=== PATIENT | male | born 1965 | race Caucasian/White ===

== ENCOUNTER 2016-08-24 15:43 | Inpatient (IN) | payer OTHER ==
[~2016-08-24] VITALS: Ht 172.7 cm; Wt 115.3 kg
[~2016-08-24 15:43] MED LIST: Bactrim,Septra DS 80 PO; Cleocin PO; DILANTIN100 MG PO; JANUMET 50/51 TABLET PO; Lopressor PO; PLAVIX75 MG PO; Percocet 10/325,Endo PO; Valium PO
[2016-08-24 16:52] LABS: HEMATOCRIT 38.1 % (38.0-50.0); MCH 32.7 PG (29.0-34.0); MCHC 33.9 G/DL (30.0-36.0); MCV 96.5 FL (86-99); MEAN PLAT.VOLUME 9.7 uM^3 (9.0-12.4); PLATELET COUNT 188 K/uL (156-360); RBC DIS.WIDTH-CV 13.4 % (11.8-14.6); RBC DIS.WIDTH-SD 48.2 % (39-53); RED BLOOD COUNT 3.95 M/uL (4.00-5.50); WHITE BLOOD COUNT 7.3 K/uL (4.1-10.2)
[2016-08-24 17:00] LABS: CHLORIDE 111 mEq/L (99-109); POTASSIUM 5.1 mEq/L (3.7-5.4); SODIUM 140 mEq/L (136-147)
[2016-08-24 17:02] LABS: GLUCOSE 123 mg/dL (70-99)
[2016-08-24 17:03] LABS: ANION GAP 10 MEQ/L (2-14)
[2016-08-24 17:04] LABS: TOTAL BILIRUBIN 0.5 mg/dL (0.0-1.0)
[2016-08-24 17:05] LABS: ALKALINE PHOSPHATASE 191 IU/L (3-129)
[2016-08-24 17:06] LABS: GFR ESTIMATE (CALCULATED) 32 mL/min/
[2016-08-24 17:07] LABS: DIRECT BILIRUBIN 0.3 mg/dL (0.0-0.3); UREA NITROGEN (BUN) 26 mg/dL (9-23)
[2016-08-24] MEDS ORDERED: LOPRESSOR25 MG PO (20:58)
[2016-08-24] MEDS ORDERED: VALIUM10 MG PO (20:59)
[2016-08-24] MEDS ORDERED: CILOSTAZOL50 MG PO (20:59)
[2016-08-24] MEDS ORDERED: OXYCODONE HCL15 MG PO (20:59)
[2016-08-24] MEDS ORDERED: NOVOLOG MI100 UNIT/M SC ×2 (21:00)
[2016-08-24] MEDS ORDERED: K-DUR10 MEQ PO (21:01)
[2016-08-24] MEDS ORDERED: FUROSEMIDE40 MG PO (21:01)
[2016-08-24] MEDS ORDERED: NEURONTIN300 MG PO (21:01)
[2016-08-24] MEDS ORDERED: TRENTAL400 MG PO (21:01)
[2016-08-24 22:43] VITALS: BP 141/80
[2016-08-24 23:07] LABS: POINT-OF-CARE METER ID UU13113725
[2016-08-25 06:16] LABS: HEMATOCRIT 38.4 % (38.0-50.0); MCH 32.1 PG (29.0-34.0); MCHC 32.6 G/DL (30.0-36.0); MCV 98.7 FL (86-99); MEAN PLAT.VOLUME 9.3 uM^3 (9.0-12.4); PLATELET COUNT 175 K/uL (156-360); RBC DIS.WIDTH-CV 13.9 % (11.8-14.6); RBC DIS.WIDTH-SD 50.7 % (39-53); RED BLOOD COUNT 3.89 M/uL (4.00-5.50); WHITE BLOOD COUNT 7.1 K/uL (4.1-10.2)
[2016-08-25 06:41] LABS: ALKALINE PHOSPHATASE 168 IU/L (3-129); ANION GAP 6 MEQ/L (2-14); CHLORIDE 110 MEQ/L (99-109); GFR ESTIMATE (CALCULATED) 34 mL/min/; GLUCOSE 113 mg/dL (70-99); POTASSIUM 5.1 MEQ/L (3.7-5.4); SAMPLE HEMOLYSIS CHECK 0; SAMPLE ICTERIC CHECK 0; SAMPLE LIPEMIA CHECK 0; SODIUM 137 MEQ/L (136-147); TOTAL BILIRUBIN 0.4 MG/DL (0.0-1.0); UREA NITROGEN (BUN) 24 mg/dL (9-23)
[2016-08-25 08:57] VITALS: BP 146/69
[2016-08-25 09:28] LABS: ADD MIUA? YES; BILIRUBIN NEGATIVE; BLOOD SMALL; COLOR YELLOW ((YELLOW)); GLUCOSE (STRIP) 50; KETONES NEGATIVE; LEUKOCYTES NEGATIVE; NITRITE NEGATIVE; PROTEIN (STRIP) >=500; SPECIFIC GRAVITY 1.016 (1.000-1.030); UROBILINOGEN 0.2 MG/DL (0.2-1.0)
[2016-08-25 09:42] LABS: BACTERIA RARE /HPF; EPITHELIAL CELLS RARE /HPF; GRANULAR CASTS 0-5 /LPF; MUCUS TRACE /LPF; UCUL ADDED? NO; WHITE BLOOD CELLS 0-5 /HPF (0-5)
[2016-08-25 11:07] VITALS: BP 133/80
[2016-08-25 16:09] VITALS: BP 137/70
[2016-08-25 19:48] VITALS: BP 135/71
[2016-08-25 23:39] VITALS: BP 119/61
[2016-08-26 03:29] VITALS: BP 134/71
[2016-08-26 07:11] LABS: HEMATOCRIT 37.9 % (38.0-50.0); MCH 32.3 PG (29.0-34.0); MCHC 32.5 G/DL (30.0-36.0); MCV 99.5 FL (86-99); MEAN PLAT.VOLUME 9.6 uM^3 (9.0-12.4); PLATELET COUNT 161 K/uL (156-360); RBC DIS.WIDTH-CV 13.9 % (11.8-14.6); RBC DIS.WIDTH-SD 50.9 % (39-53); RED BLOOD COUNT 3.81 M/uL (4.00-5.50); WHITE BLOOD COUNT 6.7 K/uL (4.1-10.2)
[2016-08-26 07:38] LABS: ALKALINE PHOSPHATASE 165 IU/L (3-129); ANION GAP 7 MEQ/L (2-14); CHLORIDE 111 MEQ/L (99-109); GFR ESTIMATE (CALCULATED) 35 mL/min/; GLUCOSE 103 mg/dL (70-99); POTASSIUM 5.1 MEQ/L (3.7-5.4); SAMPLE HEMOLYSIS CHECK 0; SAMPLE ICTERIC CHECK 0; SAMPLE LIPEMIA CHECK 0; SODIUM 137 MEQ/L (136-147); TOTAL BILIRUBIN 0.3 MG/DL (0.0-1.0); UREA NITROGEN (BUN) 27 mg/dL (9-23)
[2016-08-26 08:25] VITALS: BP 136/71
[2016-08-26 11:33] LABS: POINT-OF-CARE METER ID UU13113725
[2016-08-26 11:56] VITALS: BP 137/73
[2016-08-26 16:05] VITALS: BP 129/72
[2016-08-26 19:20] VITALS: BP 166/78
[2016-08-26 21:06] LABS: POINT-OF-CARE METER ID UU13113725
[2016-08-26 23:41] VITALS: BP 148/73
[2016-08-27 03:15] VITALS: BP 145/65
[2016-08-27 06:21] LABS: POINT-OF-CARE METER ID UU13113725
[2016-08-27 06:59] LABS: HEMATOCRIT 37.6 % (38.0-50.0); MCH 32.6 PG (29.0-34.0); MCHC 33.2 G/DL (30.0-36.0); MCV 97.9 FL (86-99); MEAN PLAT.VOLUME 9.5 uM^3 (9.0-12.4); PLATELET COUNT 166 K/uL (156-360); RBC DIS.WIDTH-CV 13.8 % (11.8-14.6); RBC DIS.WIDTH-SD 49.4 % (39-53); RED BLOOD COUNT 3.84 M/uL (4.00-5.50); WHITE BLOOD COUNT 6.7 K/uL (4.1-10.2)
[2016-08-27 07:05] VITALS: BP 159/87
[2016-08-27 07:21] LABS: ALKALINE PHOSPHATASE 169 IU/L (3-129); ANION GAP 9 MEQ/L (2-14); CHLORIDE 111 MEQ/L (99-109); GFR ESTIMATE (CALCULATED) 40 mL/min/; GLUCOSE 112 mg/dL (70-99); POTASSIUM 4.9 MEQ/L (3.7-5.4); SAMPLE HEMOLYSIS CHECK 0; SAMPLE ICTERIC CHECK 0; SAMPLE LIPEMIA CHECK 0; SODIUM 138 MEQ/L (136-147); TOTAL BILIRUBIN 0.3 MG/DL (0.0-1.0); UREA NITROGEN (BUN) 29 mg/dL (9-23)
[2016-08-27 11:28] LABS: POINT-OF-CARE METER ID UU13113725
== END 2016-08-27 15:24 | disposition home or self-care (01) | DRG 683 ==
LOC: EME 15:43 → EDOF 21:38 → 5EAST 22:37
PROVIDERS: Internal Medicine
DX: N17.9 Acute kidney failure, unspecified (principal); I67.1 Cerebral aneurysm, nonruptured; R41.82 Altered mental status, unspecified; E86.0 Dehydration; M79.605 Pain in left leg; M79.604 Pain in right leg; I10 Essential (primary) hypertension; J44.9 Chronic obstructive pulmonary disease, unspecified; I25.10 Atherosclerotic heart disease of native coronary artery without angina pectoris; F17.210 Nicotine dependence, cigarettes, uncomplicated; F41.9 Anxiety disorder, unspecified; R01.1 Cardiac murmur, unspecified; I73.9 Peripheral vascular disease, unspecified; G40.89 Other seizures; E11.9 Type 2 diabetes mellitus without complications; G89.29 Other chronic pain; I25.2 Old myocardial infarction
CPT/HCPCS: 70450; 71020; 80053; 80185; 81003; 82248; 82948; 85027; 94799; 99281; 99283; J1644; J1815; J7030; J7050

== ENCOUNTER → 2016-10-30 | Outpatient (CLI) | payer MEDICARE, OTHER ==
[~2016-10-30] MED LIST changes: +CILOSTAZOL100 MG PO; +CILOSTAZOL50 MG PO; +FUROSEMIDE40 MG PO; +K-DUR10 MEQ PO; +LOPRESSOR25 MG PO; +NEURONTIN300 MG PO; +NOVOLOG MI100 UNIT/M SC; +OXYCODONE HCL15 MG PO; +TRENTAL400 MG PO; +VALIUM10 MG PO
== END | disposition home or self-care (01) ==
LOC: CDC 11:41
DX: R94.31 Abnormal electrocardiogram [ECG] [EKG] (principal)
CPT/HCPCS: 93000

== ENCOUNTER 2016-11-01 14:49 | Inpatient (IN) | payer OTHER ==
[~2016-11-01] VITALS: Ht 172.7 cm; Wt 80.5 kg
[~2016-11-01 14:49] MED LIST changes: -CILOSTAZOL100 MG PO
[2016-11-01 15:36] LABS: EOSINOPHIL (%) 0.3 % (0-5); HEMATOCRIT 41.2 % (38.0-50.0); IMMATURE GRANULOCYTE (%) 0.7 % (0.0-0.7); IMMATURE GRANULOCYTE COUNT 0.1 K/uL; INSTRUMENT ABS NEUTROPHIL CT 7.3 K/uL; LYMPHOCYTE COUNT 0.7 K/uL (1.0-2.8); MCH 32.3 PG (29.0-34.0); MCV 95.2 FL (86-99); MEAN PLAT.VOLUME 8.7 uM^3 (9.0-12.4); MONOCYTE (%) 4.9 % (3-12); MONOCYTE COUNT 0.4 K/uL (0-0.8); NEUTROPHIL (%) 85.4 % (45-76); NEUTROPHIL COUNT 7.3 K/uL (1.8-6.4); PLATELET COUNT 134 K/uL (156-360); RBC DIS.WIDTH-CV 14.2 % (11.8-14.6); RBC DIS.WIDTH-SD 48.8 % (39-53); RED BLOOD COUNT 4.33 M/uL (4.00-5.50); WHITE BLOOD COUNT 8.6 K/uL (4.1-10.2)
[2016-11-01 15:48] LABS: INTER. NORMALIZED RATIO 1.1
[2016-11-01 15:56] LABS: CHLORIDE 114 mEq/L (99-109); SODIUM 140 mEq/L (136-147)
[2016-11-01 15:57] LABS: POTASSIUM 4.3 mEq/L (3.7-5.4)
[2016-11-01 15:59] LABS: ANION GAP 7 MEQ/L (2-14); GLUCOSE 191 mg/dL (70-99)
[2016-11-01 16:00] LABS: TOTAL BILIRUBIN 0.6 mg/dL (0.0-1.0)
[2016-11-01 16:01] LABS: ALKALINE PHOSPHATASE 191 IU/L (3-129)
[2016-11-01 16:02] LABS: GFR ESTIMATE (CALCULATED) 37 mL/min/
[2016-11-01 16:03] LABS: UREA NITROGEN (BUN) 32 mg/dL (9-23)
[2016-11-01 16:47] LABS: PTT 27.1 (25-32)
[2016-11-01] MEDS ORDERED: CILOSTAZOL100 MG PO (17:54)
[2016-11-02 00:38] VITALS: BP 170/82
[2016-11-02 00:40] VITALS: BP 111/68
[2016-11-02 06:55] LABS: ANION GAP 6 MEQ/L (2-14); CHLORIDE 113 MEQ/L (99-109); GFR ESTIMATE (CALCULATED) 45 mL/min/; POTASSIUM 4.7 MEQ/L (3.7-5.4); SAMPLE HEMOLYSIS CHECK 0; SAMPLE ICTERIC CHECK 0; SAMPLE LIPEMIA CHECK 0; SODIUM 140 MEQ/L (136-147); UREA NITROGEN (BUN) 27 mg/dL (9-23)
[2016-11-02 06:57] LABS: GLUCOSE 102 mg/dL (70-99)
[2016-11-02 07:13] VITALS: BP 133/73
[2016-11-02 11:26] LABS: POINT-OF-CARE METER ID UU13113725
[2016-11-02 16:35] VITALS: BP 136/77
[2016-11-02 19:45] VITALS: BP 138/65
[2016-11-02 23:48] VITALS: BP 165/79
[2016-11-03 02:18] VITALS: BP 134/64
[2016-11-03 08:15] VITALS: BP 159/74
[2016-11-03 10:57] LABS: HEMATOCRIT 39.2 % (38.0-50.0); MCHC 33.9 G/DL (30.0-36.0); MCV 97.3 FL (86-99); MEAN PLAT.VOLUME 9.2 uM^3 (9.0-12.4); PLATELET COUNT 126 K/uL (156-360); RBC DIS.WIDTH-CV 14.4 % (11.8-14.6); RBC DIS.WIDTH-SD 50.4 % (39-53); RED BLOOD COUNT 4.03 M/uL (4.00-5.50); WHITE BLOOD COUNT 7.3 K/uL (4.1-10.2)
[2016-11-03 16:04] VITALS: BP 145/70
[2016-11-03 19:42] VITALS: BP 173/74
[2016-11-03 23:27] VITALS: BP 159/77
[2016-11-04 08:02] VITALS: BP 108/54
[2016-11-04 12:55] LABS: INTER. NORMALIZED RATIO 1.1; PROTHROMBIN TIME 11.4 (9.2-11.2)
[2016-11-04 15:49] VITALS: BP 157/86
[2016-11-04 19:19] VITALS: BP 170/81
[2016-11-05 00:02] VITALS: BP 145/71
[2016-11-05 06:43] LABS: INTER. NORMALIZED RATIO 1.1; PROTHROMBIN TIME 10.8 (9.2-11.2)
[2016-11-05 08:36] VITALS: BP 152/76
[2016-11-05 15:00] VITALS: BP 157/72
[2016-11-05 23:16] VITALS: BP 157/76
[2016-11-06 07:12] LABS: INTER. NORMALIZED RATIO 1.1; PROTHROMBIN TIME 11.4 (9.2-11.2)
[2016-11-06] MEDS ORDERED: OXYCODONE HCL5 MG PO (07:36)
[2016-11-06 08:00] VITALS: BP 149/74
== END 2016-11-06 13:07 | disposition home or self-care (01) | DRG 301 ==
LOC: EME 14:49 → EDOF 15:52 → 5EAST 15:52 → EDOF 19:50 → 5EAST 19:50
PROVIDERS: Emergency Medicine; Physician Assistant Surgical; Surgery
DX: E11.51 Type 2 diabetes mellitus with diabetic peripheral angiopathy without gangrene (principal); I70.213 Atherosclerosis of native arteries of extremities with intermittent claudication, bilateral legs; I75.021 Atheroembolism of right lower extremity; I12.9 Hypertensive chronic kidney disease with stage 1 through stage 4 chronic kidney disease, or unspecified chronic kidney disease; E11.22 Type 2 diabetes mellitus with diabetic chronic kidney disease; N18.9 Chronic kidney disease, unspecified; I67.1 Cerebral aneurysm, nonruptured; G89.29 Other chronic pain; I25.10 Atherosclerotic heart disease of native coronary artery without angina pectoris; I25.2 Old myocardial infarction; G43.909 Migraine, unspecified, not intractable, without status migrainosus; J44.9 Chronic obstructive pulmonary disease, unspecified; M06.9 Rheumatoid arthritis, unspecified; R56.9 Unspecified convulsions; F17.210 Nicotine dependence, cigarettes, uncomplicated; F41.9 Anxiety disorder, unspecified; Z82.3 Family history of stroke; Z95.5 Presence of coronary angioplasty implant and graft
CPT/HCPCS: 36415; 80048; 80053; 80185; 82948; 85025; 85027; 85610; 85730; 93000; 94799; 99281; 99285; J1170; J1650; J3010; J7030; J7040; J7050

== ENCOUNTER 2017-04-19 13:10 | Inpatient (IN) | payer OTHER ==
[~2017-04-19] VITALS: Ht 170.2 cm; Wt 81.2 kg
[2017-04-19] VITALS (7 sets, daily range): BP systolic 99–137; BP diastolic 58–73
[~2017-04-19 13:10] MED LIST changes: +CILOSTAZOL100 MG PO; +OXYCODONE HCL10 MG PO; -OXYCODONE HCL15 MG PO; +OXYCODONE HCL5 MG PO
[2017-04-19 13:50] LABS: BASOPHIL (%) 0.3 % (0-1); EOSINOPHIL (%) 0 % (0-5); HEMATOCRIT 46.5 % (38.0-50.0); HEMOGLOBIN 15.3 G/DL (12.5-16.6); IMMATURE GRANULOCYTE (%) 1.9 % (0.0-0.7); LYMPHOCYTE (%) 16.2 % (15-42); LYMPHOCYTE COUNT 1.9 K/uL (1.0-2.8); MCH 33.6 PG (29.0-34.0); MCHC 32.9 G/DL (30.0-36.0); MONOCYTE (%) 8.5 % (3-12); NEUTROPHIL (%) 73.1 % (45-76); NEUTROPHIL COUNT 8.6 K/uL (1.8-6.4); PLATELET COUNT 140 K/uL (156-360); RBC DIS.WIDTH-CV 16.7 % (11.8-14.6); RBC DIS.WIDTH-SD 62.8 % (39-53); RED BLOOD COUNT 4.56 M/uL (4.00-5.50); WHITE BLOOD COUNT 11.7 K/uL (4.1-10.2)
[2017-04-19 13:59] LABS: BASE EXCESS -12.2 mEq/L (-3 to +3); BICARBONATE 17.8 mEq/L (22-26); CARBOXY HGB 6.2 % (0-5); METHEMOGLOBIN 0.8 % (0-1.5); PCO2 56 mm Hg (35-45); PO2 53 mm Hg (80-100)
[2017-04-19 14:00] LABS: COMMENTS - BLOOD GASES A+C+; DEVICE NC; O2 FLOW 6 L/MIN; SITE LR; pH 7.11 (7.35-7.45)
[2017-04-19 14:37] LABS: ALBUMIN 3.1 G/DL (3.2-4.8); CHLORIDE 113 MEQ/L (99-109); SODIUM 138 MEQ/L (136-147); TOTAL BILIRUBIN 0.5 MG/DL (0.0-1.0)
[2017-04-19 14:45] LABS: AMPHETAMINE NEGATIVE (500 ng/mL); BARBITURATES PRESUMPTIVE POSITIVE (200 ng/mL); BENZODIAZEPINES PRESUMPTIVE POSITIVE (150 ng/mL); BUPRENORPHINE NEGATIVE (10 ng/mL); COCAINE NEGATIVE (150 ng/mL); METHADONE NEGATIVE (200 ng/mL); METHAMPHETAMINE NEGATIVE (500 ng/mL); OPIATES (MORPHINE) NEGATIVE (100 ng/mL); OXYCODONE PRESUMPTIVE POSITIVE (100 ng/mL); PHENCYCLIDINE NEGATIVE (25 ng/mL); PROPOXYPHENE NEGATIVE (300 ng/mL); THC CANNABINOIDS NEGATIVE (50 ng/mL); TRICYCLIC ANTIDEPRESSANTS NEGATIVE (300 ng/mL)
[2017-04-19 14:56] LABS: ALKALINE PHOSPHATASE 199 IU/L (3-129); ALT (GPT) 12 IU/L (3-49); AST (GOT) 21 IU/L (2-34); CREATININE 3.6 MG/DL (0.6-1.3); GFR ESTIMATE (CALCULATED) 19 mL/min/ (58.99-99999); GLUCOSE 95 mg/dL (70-99); SERUM ETHYL ALCOHOL < 10 mg/dL; TOTAL PROTEIN 6.4 G/DL (6.4-8.3); UREA NITROGEN (BUN) 44 mg/dL (9-23)
[2017-04-19 15:00] LABS: POTASSIUM ND MEQ/L (3.7-5.4)
[2017-04-19 15:21] LABS: BENZODIAZEPINES, URINE SCREEN POSITIVE (200 ng/mL)
[2017-04-19 15:39] LABS: POTASSIUM 6.9 MEQ/L (3.7-5.4)
[2017-04-19 16:10] LABS: BASE EXCESS -12.2 mEq/L (-3 to +3); BICARBONATE 18.2 mEq/L (22-26); CARBOXY HGB 4.9 % (0-5); METHEMOGLOBIN 0.9 % (0-1.5); PCO2 60 mm Hg (35-45)
[2017-04-19 16:12] LABS: COMMENTS - BLOOD GASES A+C+; DEVICE 840 PB MASK; FI02 60 %; MODE SPONT NIV; PEEP 5 CM/H20; PO2 98 mm Hg (80-100); PRES. SUPPORT 10 CM/H2O; SITE RR; TOTAL RESP RATE 20 resp/min; pH 7.09 (7.35-7.45)
[2017-04-19] MEDS ORDERED: LYRICA50 MG PO (17:34)
[2017-04-19 18:31] LABS: BASE EXCESS -12.7 mEq/L (-3 to +3); COMMENTS - BLOOD GASES A+C+; DEVICE 840 PB; FI02 100 %; MECHANICAL RATE 20 resp/min; METHEMOGLOBIN 1.2 % (0-1.5); MODE AC; PCO2 47 mm Hg (35-45); PEEP 10 CM/H20; PO2 78 mm Hg (80-100); SITE RR; TIDAL VOLUME 550 ML; TOTAL RESP RATE 20 resp/min; pH 7.14 (7.35-7.45)
[2017-04-19 20:43] LABS: CHLORIDE 115 MEQ/L (99-109); SODIUM 140 MEQ/L (136-147)
[2017-04-19 20:48] LABS: CREATININE 3.5 MG/DL (0.6-1.3); GFR ESTIMATE (CALCULATED) 20 mL/min/ (58.99-99999); GLUCOSE 102 mg/dL (70-99); UREA NITROGEN (BUN) 45 mg/dL (9-23)
[2017-04-20] VITALS (21 sets, daily range): BP systolic 112–160; BP diastolic 58–82
[2017-04-20 06:30] LABS: BASOPHIL (%) 0.3 % (0-1); EOSINOPHIL (%) 0.4 % (0-5); HEMATOCRIT 38.6 % (38.0-50.0); IMMATURE GRANULOCYTE (%) 0.5 % (0.0-0.7); LYMPHOCYTE (%) 15.2 % (15-42); LYMPHOCYTE COUNT 1.5 K/uL (1.0-2.8); MCH 32.6 PG (29.0-34.0); MCHC 32.4 G/DL (30.0-36.0); MCV 100.8 FL (86-99); MONOCYTE (%) 7.7 % (3-12); MONOCYTE COUNT 0.8 K/uL (0-0.8); NEUTROPHIL (%) 75.9 % (45-76); NEUTROPHIL COUNT 7.5 K/uL (1.8-6.4); PLATELET COUNT 107 K/uL (156-360); RBC DIS.WIDTH-CV 16.5 % (11.8-14.6); RBC DIS.WIDTH-SD 61.3 % (39-53); RED BLOOD COUNT 3.83 M/uL (4.00-5.50); WHITE BLOOD COUNT 9.8 K/uL (4.1-10.2)
[2017-04-20 06:33] LABS: HEMOGLOBIN 12.5 G/DL (12.5-16.6)
[2017-04-20 06:40] LABS: ALBUMIN 2.5 G/DL (3.2-4.8); ALKALINE PHOSPHATASE 159 IU/L (3-129); ALT (GPT) 9 IU/L (3-49); AST (GOT) 14 IU/L (2-34); CHLORIDE 117 MEQ/L (99-109); CREATININE 3.6 MG/DL (0.6-1.3); GFR ESTIMATE (CALCULATED) 19 mL/min/ (58.99-99999); GLUCOSE 78 mg/dL (70-99); MAGNESIUM 1.9 mg/dl (1.3-2.7); POTASSIUM 5.8 MEQ/L (3.7-5.4); SODIUM 140 MEQ/L (136-147); TOTAL BILIRUBIN 0.4 MG/DL (0.0-1.0); UREA NITROGEN (BUN) 45 mg/dL (9-23)
[2017-04-20 06:44] LABS: TOTAL PROTEIN 4.9 G/DL (6.4-8.3)
[2017-04-20 12:18] LABS: INTER. NORMALIZED RATIO 1.2
[2017-04-20 12:20] LABS: PTT 26.6 SEC (25-37)
[2017-04-20 12:34] LABS: TROP-I INTERPRETATION NEGATIVE; TROPONIN-I 0.21 ng/mL (0.0-0.30)
[2017-04-20 12:52] LABS: HEPATITIS B SURFACE ANTIGEN Nonreactive
[2017-04-20 12:53] LABS: ANTI-HEPATITIS A VIRUS (IGM) Nonreactive
[2017-04-20 12:54] LABS: ANTI-HEPATITIS B CORE (IGM) Nonreactive
[2017-04-20 12:57] LABS: HEPATITIS C ANTIBODY REACTIVE
[2017-04-20 18:23] LABS: CHLORIDE 114 MEQ/L (99-109); CREATININE 3.6 MG/DL (0.6-1.3); GFR ESTIMATE (CALCULATED) 19 mL/min/ (58.99-99999); GLUCOSE 89 mg/dL (70-99); POTASSIUM 5.3 MEQ/L (3.7-5.4); SODIUM 140 MEQ/L (136-147); UREA NITROGEN (BUN) 46 mg/dL (9-23)
[2017-04-21] VITALS (23 sets, daily range): BP systolic 127–173; BP diastolic 60–86
[2017-04-21 05:48] LABS: BASOPHIL (%) 0.5 % (0-1); EOSINOPHIL (%) 0.5 % (0-5); HEMATOCRIT 36.1 % (38.0-50.0); HEMOGLOBIN 12.5 G/DL (12.5-16.6); IMMATURE GRANULOCYTE (%) 0.6 % (0.0-0.7); LYMPHOCYTE (%) 13.9 % (15-42); LYMPHOCYTE COUNT 0.9 K/uL (1.0-2.8); MCH 34.2 PG (29.0-34.0); MCHC 34.6 G/DL (30.0-36.0); MCV 98.9 FL (86-99); MONOCYTE (%) 9.4 % (3-12); MONOCYTE COUNT 0.6 K/uL (0-0.8); NEUTROPHIL (%) 75.1 % (45-76); NEUTROPHIL COUNT 4.8 K/uL (1.8-6.4); PLATELET COUNT 112 K/uL (156-360); RBC DIS.WIDTH-CV 16.1 % (11.8-14.6); RBC DIS.WIDTH-SD 57.8 % (39-53); RED BLOOD COUNT 3.65 M/uL (4.00-5.50); WHITE BLOOD COUNT 6.4 K/uL (4.1-10.2)
[2017-04-21 06:29] LABS: C4 COMPLEMENT 16 MG/DL (10-40)
[2017-04-21 06:30] LABS: ALBUMIN 2.5 G/DL (3.4-5.0); GLOBULINS 2.6 G/DL (2.3-3.5); TOTAL PROTEIN 5.1 G/DL (6.4-8.2)
[2017-04-21 07:14] LABS: ALBUMIN 2.6 G/DL (3.2-4.8); ALKALINE PHOSPHATASE 151 IU/L (3-129); ALT (GPT) 8 IU/L (3-49); AST (GOT) 9 IU/L (2-34); CHLORIDE 112 MEQ/L (99-109); CREATININE 3.4 MG/DL (0.6-1.3); GFR ESTIMATE (CALCULATED) 20 mL/min/ (58.99-99999); GLUCOSE 110 mg/dL (70-99); MAGNESIUM 1.9 mg/dl (1.3-2.7); PHOSPHORUS 4.3 mg/dL (2.5-4.9); SODIUM 146 MEQ/L (136-147); TOTAL BILIRUBIN 0.4 MG/DL (0.0-1.0); TOTAL PROTEIN 5.1 G/DL (6.4-8.3); UREA NITROGEN (BUN) 43 mg/dL (9-23)
[2017-04-21 07:17] LABS: POTASSIUM 3.9 MEQ/L (3.7-5.4); VANCOMYCIN, TROUGH 6.5 MCG/ML (10-20)
[2017-04-21 07:28] LABS: URIC ACID 7.4 mg/dL (3.1-9.2)
[2017-04-21 08:20] LABS: APPEARANCE SL.HAZY ((CLEAR)); BILIRUBIN NEGATIVE; BLOOD SMALL; COLOR YELLOW ((YELLOW)); GLUCOSE (STRIP) NEGATIVE; KETONES NEGATIVE; LEUKOCYTES NEGATIVE; NITRITE NEGATIVE; PROTEIN (STRIP) 100; SPECIFIC GRAVITY 1.008 (1.000-1.030); UROBILINOGEN 0.2 MG/DL (0.2-1.0)
[2017-04-21 08:22] LABS: INTACT PARATHYROID HORMONE 395 pg/mL (10-69)
[2017-04-21 08:33] LABS: BACTERIA RARE /HPF; EPITHELIAL CELLS NONE SEEN /HPF; MUCUS TRACE /LPF; RED BLOOD CELLS 20-30 /HPF (0-5); WHITE BLOOD CELLS 0-5 /HPF (0-5)
[2017-04-21 08:45] LABS: UR CREATININE CONCENTRATION 49.4 MG/DL
[2017-04-22] VITALS (20 sets, daily range): BP systolic 141–177; BP diastolic 66–97
[2017-04-22 05:04] LABS: BASOPHIL (%) 0.3 % (0-1); EOSINOPHIL (%) 0.4 % (0-5); HEMATOCRIT 36.4 % (38.0-50.0); HEMOGLOBIN 12.1 G/DL (12.5-16.6); IMMATURE GRANULOCYTE (%) 0.5 % (0.0-0.7); LYMPHOCYTE (%) 12.3 % (15-42); LYMPHOCYTE COUNT 0.9 K/uL (1.0-2.8); MCH 32.9 PG (29.0-34.0); MCHC 33.2 G/DL (30.0-36.0); MCV 98.9 FL (86-99); MONOCYTE (%) 9.3 % (3-12); MONOCYTE COUNT 0.7 K/uL (0-0.8); NEUTROPHIL (%) 77.2 % (45-76); NEUTROPHIL COUNT 5.7 K/uL (1.8-6.4); PLATELET COUNT 101 K/uL (156-360); RBC DIS.WIDTH-CV 15.9 % (11.8-14.6); RBC DIS.WIDTH-SD 57.6 % (39-53); RED BLOOD COUNT 3.68 M/uL (4.00-5.50); WHITE BLOOD COUNT 7.3 K/uL (4.1-10.2)
[2017-04-22 05:24] LABS: ALBUMIN 2.3 g/dL (3.2-4.8); CHLORIDE 114 mEq/L (99-109); POTASSIUM 3.4 mEq/L (3.7-5.4); SODIUM 145 mEq/L (136-147)
[2017-04-22 05:25] LABS: MAGNESIUM 1.6 mg/dL (1.3-2.7)
[2017-04-22 05:27] LABS: GLUCOSE 92 mg/dL (70-99)
[2017-04-22 05:28] LABS: TOTAL BILIRUBIN 0.5 mg/dL (0.0-1.0)
[2017-04-22 05:30] LABS: ALKALINE PHOSPHATASE 142 IU/L (3-129); GFR ESTIMATE (CALCULATED) 25 mL/min/ (58.99-99999)
[2017-04-22 05:31] LABS: CREATININE 2.8 mg/dL (0.6-1.3); UREA NITROGEN (BUN) 33 mg/dL (9-23)
[2017-04-22 05:32] LABS: AST (GOT) 11 IU/L (2-34)
[2017-04-22 05:33] LABS: ALT (GPT) 7 IU/L (3-49)
[2017-04-22 05:48] LABS: IRON 29 MCG/DL (35-150); TRANSFERRIN (TIBC) 110.1 mg/dL (215-380); TRANSFERRIN SATUR. 26 % (20-55)
[2017-04-22 08:25] LABS: FERRITIN 140 NG/ML (22-322)
[2017-04-22 10:36] LABS: HEPATITIS B SURFACE ANTIBODY Nonreactive
[2017-04-22 10:37] LABS: ANTI-HEPATITIS A VIRUS (IGM) Nonreactive
[2017-04-22 11:17] LABS: BASE EXCESS -1.9 mEq/L (-3 to +3); CARBOXY HGB 2.9 % (0-5); METHEMOGLOBIN 1.4 % (0-1.5)
[2017-04-22 11:18] LABS: BICARBONATE 22.2 mEq/L (22-26); PCO2 35 mm Hg (35-45); PO2 60 mm Hg (80-100); pH 7.41 (7.35-7.45)
[2017-04-22 11:19] LABS: COMMENTS - BLOOD GASES A+C+; DEVICE VENT; FI02 30 %; MECHANICAL RATE 20 resp/min; MODE AC; PEEP 5 CM/H20; SITE RR; TIDAL VOLUME 550 ML; TOTAL RESP RATE 20 resp/min
[2017-04-22 13:22] LABS: ALBUMIN 2.39 G/DL (3.6-4.9); ALPHA-1 GLOBULIN 0.41 G/DL (0.15-0.40); ALPHA-2 GLOBULIN 0.81 G/DL (0.45-0.85); BETA-GLOBULIN 0.62 G/DL (0.65-1.15); GAMMA-GLOBULIN 0.87 G/DL (0.60-1.35)
[2017-04-23] VITALS (15 sets, daily range): BP systolic 142–176; BP diastolic 65–103
[2017-04-23 06:39] LABS: BASOPHIL (%) 0.4 % (0-1); EOSINOPHIL (%) 1.7 % (0-5); EOSINOPHIL COUNT 0.1 K/uL (0-0.3); HEMATOCRIT 39.3 % (38.0-50.0); HEMOGLOBIN 12.8 G/DL (12.5-16.6); IMMATURE GRANULOCYTE (%) 0.4 % (0.0-0.7); LYMPHOCYTE (%) 11.8 % (15-42); LYMPHOCYTE COUNT 0.9 K/uL (1.0-2.8); MCHC 32.6 G/DL (30.0-36.0); MCV 101.3 FL (86-99); MONOCYTE (%) 8.8 % (3-12); MONOCYTE COUNT 0.6 K/uL (0-0.8); NEUTROPHIL (%) 76.9 % (45-76); NEUTROPHIL COUNT 5.6 K/uL (1.8-6.4); PLATELET COUNT 103 K/uL (156-360); RBC DIS.WIDTH-CV 15.9 % (11.8-14.6); RBC DIS.WIDTH-SD 58.8 % (39-53); RED BLOOD COUNT 3.88 M/uL (4.00-5.50); WHITE BLOOD COUNT 7.3 K/uL (4.1-10.2)
[2017-04-23 07:35] LABS: ALBUMIN 2.5 G/DL (3.2-4.8); ALKALINE PHOSPHATASE 138 IU/L (3-129); ALT (GPT) 6 IU/L (3-49); AST (GOT) 10 IU/L (2-34); CHLORIDE 118 MEQ/L (99-109); CREATININE 2.1 MG/DL (0.6-1.3); GLUCOSE 78 mg/dL (70-99); MAGNESIUM 1.8 mg/dl (1.3-2.7); SODIUM 151 MEQ/L (136-147); TOTAL PROTEIN 5.2 G/DL (6.4-8.3); UREA NITROGEN (BUN) 28 mg/dL (9-23)
[2017-04-23 07:36] LABS: GFR ESTIMATE (CALCULATED) 35 mL/min/ (58.99-99999); POTASSIUM 4.2 MEQ/L (3.7-5.4); TOTAL BILIRUBIN 0.5 MG/DL (0.0-1.0)
[2017-04-23 16:09] LABS: CHLORIDE 112 MEQ/L (99-109); POTASSIUM 4.3 MEQ/L (3.7-5.4)
[2017-04-23 16:17] LABS: CREATININE 2.1 MG/DL (0.6-1.3); GFR ESTIMATE (CALCULATED) 35 mL/min/ (58.99-99999); UREA NITROGEN (BUN) 26 mg/dL (9-23)
[2017-04-23 16:19] LABS: GLUCOSE 121 mg/dL (70-99); SODIUM 140 MEQ/L (136-147)
[2017-04-23 17:16] LABS: GLOMERULAR BASEMENT MEMB ABY+ <1.0 AI (<1.0)
[2017-04-23 19:39] LABS: HCV RNA (IU/mL) 108644 IU/mL (<15)
[2017-04-24] VITALS (10 sets, daily range): BP systolic 143–161; BP diastolic 65–79
[2017-04-24 05:00] LABS: BASOPHIL (%) 0.3 % (0-1); EOSINOPHIL (%) 2.2 % (0-5); EOSINOPHIL COUNT 0.2 K/uL (0-0.3); HEMATOCRIT 38.3 % (38.0-50.0); IMMATURE GRANULOCYTE (%) 0.5 % (0.0-0.7); LYMPHOCYTE (%) 13.2 % (15-42); MCH 33.2 PG (29.0-34.0); MCHC 33.9 G/DL (30.0-36.0); MCV 97.7 FL (86-99); MONOCYTE (%) 7.5 % (3-12); MONOCYTE COUNT 0.6 K/uL (0-0.8); NEUTROPHIL (%) 76.3 % (45-76); NEUTROPHIL COUNT 5.6 K/uL (1.8-6.4); PLATELET COUNT 105 K/uL (156-360); RBC DIS.WIDTH-CV 15.2 % (11.8-14.6); RBC DIS.WIDTH-SD 55.3 % (39-53); RED BLOOD COUNT 3.92 M/uL (4.00-5.50); WHITE BLOOD COUNT 7.3 K/uL (4.1-10.2)
[2017-04-24 05:09] LABS: ALBUMIN 2.4 g/dL (3.2-4.8); CHLORIDE 109 mEq/L (99-109); POTASSIUM 3.7 mEq/L (3.7-5.4); SODIUM 138 mEq/L (136-147)
[2017-04-24 05:10] LABS: MAGNESIUM 1.4 mg/dL (1.3-2.7)
[2017-04-24 05:11] LABS: GLUCOSE 115 mg/dL (70-99); TOTAL PROTEIN 5.4 g/dL (6.4-8.3)
[2017-04-24 05:15] LABS: ALKALINE PHOSPHATASE 121 IU/L (3-129); GFR ESTIMATE (CALCULATED) 37 mL/min/ (58.99-99999); TOTAL BILIRUBIN 0.3 mg/dL (0.0-1.0)
[2017-04-24 05:16] LABS: UREA NITROGEN (BUN) 23 mg/dL (9-23)
[2017-04-24 05:17] LABS: AST (GOT) 15 IU/L (2-34)
[2017-04-24 05:18] LABS: ALT (GPT) 7 IU/L (3-49)
[2017-04-24 12:09] LABS: HCV RNA (LOG IU/mL) 5.04 (<1.18)
[2017-04-24 12:27] LABS: MITOCHONDRIAL (M2) ANTIBODIES+ <=20.0 U (<=20.0)
[2017-04-25 00:31] VITALS: BP 161/81
[2017-04-25 03:00] VITALS: BP 157/74
[2017-04-25 08:25] VITALS: BP 170/80
[2017-04-25 13:40] VITALS: BP 170/77
[2017-04-25 15:10] LABS: Neutrophil Cytoplasmic Aby Negative (Negative)
[2017-04-25 16:39] VITALS: BP 143/67
[2017-04-25 23:44] VITALS: BP 147/71
[2017-04-26 00:32] VITALS: BP 132/80
[2017-04-26 07:27] VITALS: BP 180/82
[2017-04-26] MEDS ORDERED: LEVETIRACETAM500 MG PO (08:26)
[2017-04-26] MEDS ORDERED: FOLIC ACID1 MG PO (08:27)
[2017-04-26] MEDS ORDERED: Chronulac,Cephulac,E PO (08:28)
[2017-04-26] MEDS ORDERED: THERAGRAN1 TABLET PO (08:28)
[2017-04-26] MEDS ORDERED: XIFAXAN550 MG PO (11:21)
[2017-04-26 11:37] VITALS: BP 175/80
[2017-04-27 03:33] LABS: Cryoglobulin, Qualitative None Detected (None Detected)
== END 2017-04-26 12:23 | disposition home or self-care (01) | DRG 441 ==
LOC: EME 13:10 → 4WEST 17:06 → EDOF 17:06 → ENRESERV 17:06 → 4WEST 19:21 → ENRESERV 04-24 07:32 → 5EAST 04-24 10:31
PROVIDERS: Emergency Medicine; Internal Medicine; Internal Medicine Nephrology; Specialist
PROC: 5A09358 Assistance with Respiratory Ventilation, Less than 24 Consecutive Hours, Intermittent Positive Airway Pressure (ICD-10-PCS; principal; 2017-04-19)
PROC: 5A1945Z Respiratory Ventilation, 24-96 Consecutive Hours (ICD-10-PCS; 2017-04-19)
PROC: 0BH17EZ Insertion of Endotracheal Airway into Trachea, Via Natural or Artificial Opening (ICD-10-PCS; 2017-04-19)
DX: K72.91 Hepatic failure, unspecified with coma (principal); J96.01 Acute respiratory failure with hypoxia; J96.02 Acute respiratory failure with hypercapnia; J15.0 Pneumonia due to Klebsiella pneumoniae; B19.21 Unspecified viral hepatitis C with hepatic coma; K74.60 Unspecified cirrhosis of liver; N17.0 Acute kidney failure with tubular necrosis; K76.7 Hepatorenal syndrome; J90 Pleural effusion, not elsewhere classified; E87.4 Mixed disorder of acid-base balance; E83.51 Hypocalcemia; E86.0 Dehydration; E87.5 Hyperkalemia; E87.6 Hypokalemia; E87.8 Other disorders of electrolyte and fluid balance, not elsewhere classified; I12.9 Hypertensive chronic kidney disease with stage 1 through stage 4 chronic kidney disease, or unspecified chronic kidney disease; N18.3 Chronic kidney disease, stage 3 (moderate); R18.8 Other ascites; J98.11 Atelectasis; E11.22 Type 2 diabetes mellitus with diabetic chronic kidney disease; E11.51 Type 2 diabetes mellitus with diabetic peripheral angiopathy without gangrene; J44.9 Chronic obstructive pulmonary disease, unspecified; G40.909 Epilepsy, unspecified, not intractable, without status epilepticus; F41.9 Anxiety disorder, unspecified; G89.4 Chronic pain syndrome; I70.213 Atherosclerosis of native arteries of extremities with intermittent claudication, bilateral legs; I25.10 Atherosclerotic heart disease of native coronary artery without angina pectoris; M06.9 Rheumatoid arthritis, unspecified; M19.90 Unspecified osteoarthritis, unspecified site; F17.200 Nicotine dependence, unspecified, uncomplicated; I25.2 Old myocardial infarction; Z95.5 Presence of coronary angioplasty implant and graft; Z23 Encounter for immunization; Z79.02 Long term (current) use of antithrombotics/antiplatelets
CPT/HCPCS: 36600; 70450; 71010; 71250; 74176; 76604; 80048 91; 80053; 80074; 80185; 80202; 81003; 82140; 82390; 82550; 82570; 82595 90; 82728; 82746; 82803; 82948; 83520 90; 83540; 83605; 83735; 83970; 84100; 84132 91; 84156; 84165; 84466; 84484; 84550; 84999; 85025; 85610; 85730; 86021 90; 86038; 86160; 86162 90; 86235; 86256 90; 86706; 86708 90; 86709; 87040; 87070; 87077; 87186; 87205; 87522 90; 87641; 87902 90; 90686; 92526 GN; 92610 GN; 93005; 93925; 93970; 94002; 94003; 94640; 94640 76; 94644; 94667; 94668; 94760; 94799; 97530 GO; 99202; 99281; 99285; G0480; J0610; J0636; J0696; J1644; J1815; J1953; J2543; J2704; J2930; J3370; J3480; J7030; J7050; J7070; J7120

== ENCOUNTER 2017-05-16 11:45 | Inpatient (IN) | payer OTHER ==
[~2017-05-16] VITALS: Ht 175.3 cm; Wt 75.5 kg
[~2017-05-16 11:45] MED LIST changes: +Chronulac,Cephulac,E PO; +FOLIC ACID1 MG PO; +LEVETIRACETAM500 MG PO; +LYRICA50 MG PO; +THERAGRAN1 TABLET PO; +XIFAXAN550 MG PO
[2017-05-16 12:35] LABS: HEMATOCRIT 37.5 % (38.0-50.0); HEMOGLOBIN 12.7 G/DL (12.5-16.6); MCHC 33.9 G/DL (30.0-36.0); MCV 97.4 FL (86-99); PLATELET COUNT 125 K/uL (156-360); RBC DIS.WIDTH-CV 14.7 % (11.8-14.6); RBC DIS.WIDTH-SD 52.8 % (39-53); RED BLOOD COUNT 3.85 M/uL (4.00-5.50); WHITE BLOOD COUNT 7.3 K/uL (4.1-10.2)
[2017-05-16 12:46] LABS: ALBUMIN 3.1 g/dL (3.2-4.8); CHLORIDE 115 mEq/L (99-109); SODIUM 140 mEq/L (136-147)
[2017-05-16 12:49] LABS: TOTAL PROTEIN 5.6 g/dL (6.4-8.3)
[2017-05-16 12:50] LABS: GLUCOSE 98 mg/dL (70-99); TOTAL BILIRUBIN 0.2 mg/dL (0.0-1.0)
[2017-05-16 12:52] LABS: ALKALINE PHOSPHATASE 143 IU/L (3-129); CREATININE 2.8 mg/dL (0.6-1.3); GFR ESTIMATE (CALCULATED) 25 mL/min/ (58.99-99999)
[2017-05-16 12:53] LABS: UREA NITROGEN (BUN) 20 mg/dL (9-23)
[2017-05-16 12:54] LABS: AST (GOT) 12 IU/L (2-34)
[2017-05-16 12:55] LABS: ALT (GPT) 14 IU/L (3-49)
[2017-05-16 12:57] LABS: TROP-I INTERPRETATION NEGATIVE; TROPONIN-I 0.02 ng/mL (0.0-0.30)
[2017-05-16 14:25] LABS: APPEARANCE SL.HAZY ((CLEAR)); BILIRUBIN NEGATIVE; BLOOD SMALL; COLOR YELLOW ((YELLOW)); GLUCOSE (STRIP) 150; KETONES NEGATIVE; LEUKOCYTES NEGATIVE; NITRITE NEGATIVE; PROTEIN (STRIP) >=500; SPECIFIC GRAVITY 1.022 (1.000-1.030); UROBILINOGEN 0.2 MG/DL (0.2-1.0)
[2017-05-16 14:27] LABS: BACTERIA RARE /HPF; EPITHELIAL CELLS RARE /HPF; MUCUS NONE SEEN /LPF; UCUL ADDED? NO; WHITE BLOOD CELLS 0-5 /HPF (0-5)
[2017-05-16 21:44] VITALS: BP 143/72
[2017-05-16 23:40] VITALS: BP 120/66
[2017-05-17 06:12] LABS: BASOPHIL (%) 0.5 % (0-1); EOSINOPHIL (%) 1.1 % (0-5); EOSINOPHIL COUNT 0.1 K/uL (0-0.3); HEMATOCRIT 37.9 % (38.0-50.0); HEMOGLOBIN 12.2 G/DL (12.5-16.6); IMMATURE GRANULOCYTE (%) 0.5 % (0.0-0.7); LYMPHOCYTE (%) 24.7 % (15-42); LYMPHOCYTE COUNT 1.5 K/uL (1.0-2.8); MCH 32.3 PG (29.0-34.0); MCHC 32.2 G/DL (30.0-36.0); MCV 100.3 FL (86-99); MONOCYTE (%) 7.6 % (3-12); MONOCYTE COUNT 0.5 K/uL (0-0.8); NEUTROPHIL (%) 65.6 % (45-76); PLATELET COUNT 109 K/uL (156-360); RED BLOOD COUNT 3.78 M/uL (4.00-5.50); WHITE BLOOD COUNT 6.2 K/uL (4.1-10.2)
[2017-05-17 06:42] LABS: INTER. NORMALIZED RATIO 1.1
[2017-05-17 06:45] LABS: ALBUMIN 2.6 G/DL (3.2-4.8); ALKALINE PHOSPHATASE 109 IU/L (3-129); ALT (GPT) 11 IU/L (3-49); AST (GOT) 12 IU/L (2-34); CHLORIDE 116 MEQ/L (99-109); CREATININE 2.7 MG/DL (0.6-1.3); GFR ESTIMATE (CALCULATED) 26 mL/min/ (58.99-99999); GLUCOSE 92 mg/dL (70-99); SODIUM 143 MEQ/L (136-147); UREA NITROGEN (BUN) 20 mg/dL (9-23)
[2017-05-17 06:57] LABS: TOTAL BILIRUBIN 0.3 MG/DL (0.0-1.0)
[2017-05-17 10:02] VITALS: BP 154/70
[2017-05-17 11:20] LABS: LYME DISEASE SEROLOGY SCREEN NEGATIVE (NEGATIVE)
[2017-05-17 16:48] VITALS: BP 143/75
[2017-05-17 20:58] VITALS: BP 145/74
[2017-05-17 21:47] VITALS: BP 160/98
[2017-05-17 23:59] VITALS: BP 146/75
[2017-05-18 04:02] VITALS: BP 151/70
[2017-05-18 09:39] VITALS: BP 137/68
[2017-05-18 16:47] VITALS: BP 130/81
[2017-05-18 20:38] VITALS: BP 162/84
[2017-05-19 00:51] VITALS: BP 139/74
[2017-05-19 04:05] VITALS: BP 133/74
[2017-05-19 07:52] VITALS: BP 146/72
[2017-05-19 16:45] VITALS: BP 141/75
[2017-05-19] MEDS ORDERED: Chronulac,Cephulac,E PO (17:09)
[2017-05-19] MEDS ORDERED: NOVOLOG 10100 UNITS/ SC (17:09)
== END 2017-05-19 19:06 | disposition home or self-care (01) | DRG 442 ==
LOC: EME 11:45 → EDOF 17:22 → ENRESERV 17:29 → 5WEST 21:27
PROVIDERS: Emergency Medicine; Internal Medicine
DX: K72.90 Hepatic failure, unspecified without coma (principal); J90 Pleural effusion, not elsewhere classified; R06.03 Acute respiratory distress; K74.60 Unspecified cirrhosis of liver; B19.20 Unspecified viral hepatitis C without hepatic coma; I67.1 Cerebral aneurysm, nonruptured; E11.51 Type 2 diabetes mellitus with diabetic peripheral angiopathy without gangrene; I10 Essential (primary) hypertension; I25.10 Atherosclerotic heart disease of native coronary artery without angina pectoris; G40.909 Epilepsy, unspecified, not intractable, without status epilepticus; J44.9 Chronic obstructive pulmonary disease, unspecified; F41.9 Anxiety disorder, unspecified; G89.29 Other chronic pain; F17.200 Nicotine dependence, unspecified, uncomplicated; I25.2 Old myocardial infarction; Z87.01 Personal history of pneumonia (recurrent); Z95.5 Presence of coronary angioplasty implant and graft; Z79.02 Long term (current) use of antithrombotics/antiplatelets; Z23 Encounter for immunization
CPT/HCPCS: 71045; 74176; 76705; 80053; 81003; 82140; 82948; 84484; 85025; 85027; 85610; 86618; 90686; 93005; 94640; 94799; 99281; 99285; G0378; G8978 GP CI; G8979 GP CH; G8987 GO CJ; G8988 GO CH; J0456; J0696; J7030

== ENCOUNTER → 2017-05-22 | Outpatient (CLI) | payer OTHER ==
[~2017-05-22] MED LIST changes: +NOVOLOG 10100 UNITS/ SC
[2017-05-22 14:47] LABS: TYPE OF FLUID PLEURAL
[2017-05-22 15:02] LABS: APPEARANCE CLEAR-YELLOW; BODY FLUID RBC'S < 1000 /MM^3 (0-100); BODY FLUID WBC'S 324 /MM^3 (0-500)
[2017-05-22 15:28] LABS: BODY FLUID EOSINOPHILS 0 % (0-25); MONONUCLEAR WBC'S 78 %; POLYNUCLEAR WBC'S 22 % (0-25)
[2017-05-22 15:42] LABS: BODY FLUID GLUCOSE 118 MG/DL; BODY FLUID LDH 60 IU/L
== END | disposition home or self-care (01) ==
LOC: RAD 13:51 → EDSTATUS 14:00 → RAD 14:00
PROVIDERS: Radiology Diagnostic Radiology
PROC: 0W993ZZ Drainage of Right Pleural Cavity, Percutaneous Approach (ICD-10-PCS; principal; 2017-05-22)
DX: J98.11 Atelectasis (principal); J44.9 Chronic obstructive pulmonary disease, unspecified
CPT/HCPCS: 71045; 76942; 82945; 83615 91; 84157; 87070; 87075; 87205; 88108; 88305; 89051